=== PATIENT | female | born 1985 | race African-American/Black ===

== ENCOUNTER 2018-07-14 13:33 | Emergency (ER) | payer SELFPAY ==
[~2018-07-14] VITALS: Ht 162.6 cm; Wt 88.6 kg
[2018-07-14 13:38] VITALS: TEMP 97.8
[2018-07-14 14:23] LABS: BASO # 0.1 (0.0-0.2); BASO % 0.9 % (0.0-2.0); EOS # 0.1 (0.0-0.7); EOS % 1.1 % (0-4.0); GRAN # 5.5 (1.4-6.5); GRAN % 63.5 % (42.2-75.2); HEMATOCRIT 38.6 % (37.0-47.0); HEMOGLOBIN 12.8 g/dl (12.5-16.0); LYMPH # 2.2 (1.2-3.4); LYMPH % 25.9 % (20.0-51.0); MEAN CELL VOLUME 93 fl (80.0-100.0); MEAN CORPUSCULAR HEMOGLOBIN 31 pg (27.0-31.0); MEAN CORPUSCULAR HGB CONC 33 g/dl (33.0-37.0); MEAN PLATELET VOLUME 8.8 fl (7.4-10.4); MONO # 0.7 (0.1-0.6); MONO % 8.2 % (1.7-9.3); PLATELET COUNT 656 K/mm3 (130-400); RED BLOOD COUNT 4.15 M/mm3 (4.10-5.30); REDCELL DISTRIBUTION WIDTH-CV 13.6 % (11.5-14.5)
[2018-07-14] MEDS ORDERED: AMBIEN 5MG TABLE5 MG PO (14:31)
[2018-07-14] MEDS ORDERED: ELAVIL100 MG PO (14:31)
[2018-07-14] MEDS ORDERED: VYVANSE70 MG PO (14:31)
[2018-07-14 14:36] LABS: ANION GAP 10 mmol/L (7-16); BLOOD UREA NITROGEN 15 mg/dL (7-17); CALCIUM 9.1 mg/dL (8.4-10.2); CARBON DIOXIDE 26 mmol/L (22-30); CHLORIDE 104 mmol/L (98-107); CREATININE, serum 0.74 (0.52-1.25); GLUCOSE 89 mg/dL (74-106); POTASSIUM 4.5 mmol/L (3.4-5.0); SODIUM 139 mmol/L (137-145)
[2018-07-14 14:41] LABS: C-REACTIVE PROTEIN < 0.5 mg/dL (0.0-0.9)
[2018-07-14 14:55] LABS: ERYTHROCYTE SEDIMENTATION RATE 4 mm/hr (0-20)
[2018-07-14 15:42] VITALS: BP 114/72; PULSE 73
== END 2018-07-14 15:44 | disposition home or self-care (01) ==
LOC: COL.ER 13:33
PROVIDERS: Emergency Medicine
DX: R51 Headache (principal); F31.9 Bipolar disorder, unspecified
CPT/HCPCS: J0780; J1200; J1885; J7030

== ENCOUNTER → 2018-08-08 | Outpatient (CLI) | payer OTHER ==
[~2018-08-08] MED LIST: AMBIEN 5MG TABLE5 MG PO; ELAVIL100 MG PO; LATUDA40 MG PO; NEXPLANON68 MG ID; PREDNISONE20 MG PO; PRIL40 PO; VYVANSE70 MG PO
== END ==
LOC: COL.RAD 13:15
DX: H54.7 Unspecified visual loss (principal); H57.10 Ocular pain, unspecified eye; R51 Headache

== ENCOUNTER → 2018-09-11 | Outpatient (CLI) | payer OTHER | LOC: COL.RAD 12:56 | DX: G08 Intracranial and intraspinal phlebitis and thrombophlebitis (principal) ==

== ENCOUNTER → 2019-01-14 | Outpatient (CLI) | payer OTHER | LOC: COL.RAD 11:22 | DX: G08 Intracranial and intraspinal phlebitis and thrombophlebitis (principal) | CPT/HCPCS: Q9967 ==

== ENCOUNTER 2019-08-12 07:53 | Outpatient (CLI) | payer OTHER ==
[~2019-08-12] VITALS: Ht 162.6 cm; Wt 40.5 kg
[2019-08-12 09:09] VITALS: BP 120/85; PULSE 57; TEMP 98.1
[2019-08-12] MEDS ORDERED: ASPI325T6 PO (09:09)
--- NOTE | 2019-08-12 09:11 | NUR ---
Pt to procedure,report to Pavel Back.
[2019-08-12 09:30] LABS: BASO # 0.1 (0.0-0.2); BASO % 0.7 % (0.0-2.0); EOS # 0.4 (0.0-0.7); EOS % 4.8 % (0-4.0); GRAN # 5.3 (1.4-6.5); GRAN % 60.4 % (42.2-75.2); HEMOGLOBIN 11.5 g/dl (12.5-16.0); LYMPH # 2.4 (1.2-3.4); LYMPH % 27.1 % (20.0-51.0); MEAN CELL VOLUME 96 fl (80.0-100.0); MEAN CORPUSCULAR HEMOGLOBIN 32 pg (27.0-31.0); MEAN CORPUSCULAR HGB CONC 33 g/dl (33.0-37.0); MEAN PLATELET VOLUME 9.3 fl (7.4-10.4); MONO # 0.6 (0.1-0.6); MONO % 6.7 % (1.7-9.3); PLATELET COUNT 565 K/mm3 (130-400); RED BLOOD COUNT 3.65 M/mm3 (4.10-5.30); REDCELL DISTRIBUTION WIDTH-CV 14.4 % (11.5-14.5)
[2019-08-12 09:38] LABS: HEMATOCRIT 35.1 % (37.0-47.0)
[2019-08-12 10:00] VITALS: BP 116/76; PULSE 54
--- NOTE | 2019-08-12 10:06 | NUR ---
Pt returned from procedure,report from ARTEM Stone.
[2019-08-12 10:15] VITALS: BP 114/79; PULSE 54
[2019-08-12 10:30] VITALS: BP 120/92; PULSE 61
--- NOTE | 2019-08-12 10:51 | NUR ---
Discharge instructions given to pt.pt verbalizes understanding.INT removed,catheter tip intact.Pt escorted out via wheelchair by this nurse.
== END 2019-08-12 11:16 | disposition home or self-care (01) ==
LOC: SDCO 07:53
PROVIDERS: Pathology Anatomic Pathology & Clinical Pathology
DX: D47.9 Neoplasm of uncertain behavior of lymphoid, hematopoietic and related tissue, unspecified (principal); F32.9 Major depressive disorder, single episode, unspecified; Z88.8 Allergy status to other drugs, medicaments and biological substances; Z20.828 Contact with and (suspected) exposure to other viral communicable diseases; Z88.1 Allergy status to other antibiotic agents; Z79.52 Long term (current) use of systemic steroids
CPT/HCPCS: J2704; J3010

== ENCOUNTER 2019-11-11 13:38 | Emergency (ER) | payer OTHER ==
[~2019-11-11] VITALS: Ht 162.6 cm; Wt 86.4 kg
[~2019-11-11 13:38] MED LIST changes: +ASPI325T6 PO
[2019-11-11 13:50] VITALS: TEMP 98
[2019-11-11 14:08] LABS: COLLECTION METHOD CLEAN CATCH
[2019-11-11 14:17] LABS: MUCOUS Present /lpf; PH 7 (5-8); URINE APPEARANCE Hazy; URINE BACTERIA None Seen /hpf; URINE BILIRUBIN Negative (NEGATIVE); URINE BLOOD Negative (NEGATIVE); URINE COLOR Yellow; URINE GLUCOSE Negative (NEGATIVE); URINE KETONE Negative (NEGATIVE); URINE LEUKOCYTE ESTERASE Trace (NEGATIVE); URINE NITRATE Negative (NEGATIVE); URINE PROTEIN(semi-quant) Negative (NEGATIVE); URINE RBC 0-2 /hpf; URINE UROBILINOGEN Negative (NEGATIVE)
[2019-11-11 14:29] LABS: BASO # 0.1 (0.0-0.2); BASO % 0.7 % (0.0-2.0); EOS # 0.3 (0.0-0.7); EOS % 3.1 % (0-4.0); GRAN # 7.2 (1.4-6.5); GRAN % 66.7 % (42.2-75.2); HEMATOCRIT 40.5 % (37.0-47.0); HEMOGLOBIN 13.3 g/dl (12.5-16.0); LYMPH # 2.4 (1.2-3.4); MEAN CELL VOLUME 96 fl (80.0-100.0); MEAN CORPUSCULAR HEMOGLOBIN 31 pg (27.0-31.0); MEAN CORPUSCULAR HGB CONC 33 g/dl (33.0-37.0); MEAN PLATELET VOLUME 9.1 fl (7.4-10.4); MONO # 0.7 (0.1-0.6); MONO % 6.8 % (1.7-9.3); PLATELET COUNT 696 K/mm3 (130-400); RED BLOOD COUNT 4.24 M/mm3 (4.10-5.30); REDCELL DISTRIBUTION WIDTH-CV 14.6 % (11.5-14.5)
[2019-11-11 14:41] LABS: ALANINE AMINOTRANSFERASE 16 U/L (4-34); ALKALINE PHOSPHATASE 65 U/L (50-136); ANION GAP 4 mmol/L (7-16); AST,SGOT 29 U/L (15-37); BILIRUBIN,TOTAL 0.5 mg/dL (0.0-1.0); BLOOD UREA NITROGEN 9 mg/dL (7-17); CARBON DIOXIDE 30 mmol/L (22-30); CHLORIDE 103 mmol/L (98-107); CREATININE, serum 0.75 (0.52-1.25); GLUCOSE 101 mg/dL (74-106); POTASSIUM 4.5 mmol/L (3.4-5.0); SODIUM 137 mmol/L (137-145); TOTAL PROTEIN 7.1 gm/dL (6.4-8.2)
[2019-11-11 14:42] LABS: ACETAMINOPHEN < 10 ug/mL (10-30); ALCOHOL(ethanol),MEDICAL < 10 mg/dL; SALICYLATE < 1.0 mg/dL
[2019-11-11 14:42] LABS: TRICYCLIC ANTIDEPRESS URINE NEGATIVE
[2019-11-11 18:59] VITALS: BP 120/86; PULSE 102
== END 2019-11-11 19:00 | disposition home or self-care (01) ==
LOC: COL.ER 13:38
PROVIDERS: Emergency Medicine
DX: F32.9 Major depressive disorder, single episode, unspecified (principal); R45.851 Suicidal ideations; Z88.1 Allergy status to other antibiotic agents; Z32.02 Encounter for pregnancy test, result negative; Z79.82 Long term (current) use of aspirin